=== PATIENT | female | born 1985 | race Caucasian/White ===

== ENCOUNTER 2017-08-27 05:30 | Inpatient (IN) | payer BC ==
[2017-08-27] MEDS: Lactated Ringer's 1,000 ML IV SCH ×2 (10:20→13:35)
[2017-08-27] MEDS ORDERED: NS w/ Oxytocin 10 units 500 ML IV SCH ×2 (10:45)
[2017-08-27] MEDS ORDERED: Promethazine HCl 25 MG/ML VIAL IM PRN (10:45)
[2017-08-27] MEDS ORDERED: Lidocaine 1% (PF) 30 ML VIAL SC PRN (10:45)
[2017-08-27] MEDS ORDERED: NS / Oxytocin 40 units/1000ml 1,000 ML IV PRN (10:45)
[2017-08-27] MEDS ORDERED: Acetaminophen 500 MG TAB PO PRN (10:45)
[2017-08-27] MEDS ORDERED: Butorphanol Tartrate 1 MG/ML VIAL SLOW IVP PRN (10:45)
[2017-08-27] MEDS ORDERED: Ondansetron HCl/PF 4 MG/2 ML Vial IVP PRN ×2 (10:45→17:55)
[2017-08-27 11:23] VITALS: BMI 35.6
[2017-08-27 11:24] LABS: Hemoglobin 11.4 g/dL (12.0-16.0); Mean Corpuscular HGB CONC 33.3 g/dL (32.0-36.0); Mean Corpuscular Hemoglobin 26.1 pg (27.0-31.0); Mean Corpuscular Volume 78.6 fL (78.0-98.0); Mean Platelet Volume 10.6 fL (7.4-10.4); Platelet Count 129 thou/uL (130-400); RBC Distribution Width 16.2 % (11.5-14.5); Red Blood Cell (RBC) Count 4.38 mill/uL (4.20-5.40); White Blood Cell (WBC) Count 8.1 thou/uL (4.8-10.8)
[2017-08-27 12:19] LABS: Syphilis Antibody Nonreactive (Nonreactive); Syphilis Antibody Index 0.07 S/CO (<1.00 Non-Reactive)
[2017-08-27 14:10] LABS: HBSAg Index 0.18 S/CO (0-0.99); Hep B Surf Ag Non-Reactive S/CO (NonReactive)
[2017-08-27] MEDS ORDERED: Ibuprofen 800 MG TAB PO SCH ×2 (15:45→22:00)
[2017-08-27] MEDS ORDERED: HYDROcodone/Acetaminophen 5/325 mg Tablet PO SCH (15:45)
[2017-08-27] MEDS ORDERED: Acetaminophen/Codeine 30-300mg Tablet PO PRN (17:55)
[2017-08-27] MEDS ORDERED: HYDROcodone/Acetaminophen 5/325 mg Tablet PO PRN (17:55)
[2017-08-27] MEDS ORDERED: traMADol HCl 50 MG TAB PO PRN (17:55)
[2017-08-27] MEDS ORDERED: Benzocaine/Menthol 20-0.5% 60 ML CAN TOP PRN (17:55)
[2017-08-27] MEDS ORDERED: Bisacodyl 10 MG SUPP PR PRN (17:55)
[2017-08-27] MEDS ORDERED: Milk Of Magnesia 30 ML UDCUP PO PRN (17:55)
[2017-08-27] MEDS ORDERED: Preparation H Ointment 28 GM TUBE PR PRN (17:55)
[2017-08-27] MEDS ORDERED: NS / Oxytocin 40 units/1000ml 1,000 ML IV SCH (17:55)
[2017-08-27] MEDS ORDERED: diphenhydrAMINE 25 MG CAP PO PRN (17:55)
[2017-08-27] MEDS ORDERED: Lanolin Ointment 7 GM TUBE TOP PRN (17:55)
[2017-08-27] MEDS ORDERED: Ferrous Sulfate 325 MG TAB PO SCH (18:15)
[2017-08-27] MEDS: Docusate Calcium (SURFAK) 240 MG CAP PO SCH (21:32)
[2017-08-27] MEDS: Ibuprofen 800 MG TAB PO SCH (23:26)
[2017-08-28] MEDS ORDERED: Ferrous Sulfate 325 MG TAB PO SCH (08:00)
[2017-08-28] MEDS ORDERED: Prenatal Vitamin 1 TAB PO SCH (09:00)
[2017-08-28] MEDS: Docusate Calcium (SURFAK) 240 MG CAP PO SCH (09:15)
[2017-08-28] MEDS: Ibuprofen 800 MG TAB PO SCH ×2 (09:15→16:18)
[2017-08-28 12:07] VITALS: BP 123/69; TEMP 98.3
== END 2017-08-28 17:25 | disposition home or self-care (01) | DRG 775 ==
LOC: L&D 09:39 → 3SW 17:37
PROVIDERS: ADMIT Family Medicine; ATTEND Family Medicine
PROC: 10E0XZZ Delivery of Products of Conception, External Approach (ICD-10-PCS; principal; 2017-08-27)
PROC: 0HQ9XZZ Repair Perineum Skin, External Approach (ICD-10-PCS; 2017-08-27)
PROC: 10907ZC Drainage of Amniotic Fluid, Therapeutic from Products of Conception, Via Natural or Artificial Opening (ICD-10-PCS; 2017-08-27)
DX: O48.0 Post-term pregnancy (principal); Z3A.40 40 weeks gestation of pregnancy; Z37.0 Single live birth; O70.0 First degree perineal laceration during delivery
CPT/HCPCS: 85027; 86780; 86850; 86900; 86901; 87340; J2001